=== PATIENT | male | born 1995 | race Caucasian/White ===

== ENCOUNTER 2016-04-24 08:16 | Emergency (ER) | payer OTHER ==
[~2016-04-24] VITALS: Ht 175.3 cm; Wt 85.0 kg
[2016-04-24 08:20] VITALS: BP 117/85; PULSE 82; RESP 18; TEMP 98.3; O2SAT 100
[2016-04-24] MEDS ORDERED: SODIUM CHLOR 0.9% 1000 ML INJ 1,000 ML IV SCH (08:36)
--- NOTE | 2016-04-24 08:44 | PD ---
HPI Chief Complaint: Flank/Kidney Pain Time Seen by Provider: 08:25 Travel History International Travel<30 days: No Contact w/Intl Traveler<30days: No Traveled to known affect area: No History of Present Illness HPI 21-year-old male presents with mom for evaluation of right flank pain. The patient believes he may have a kidney stone, last kidney stone was about 6 months ago. Pain is in his right flank, started this morning, intermittent, sharp, currently 1 out of 10, intermittently worse, no modifying factors, associated with nausea but no vomiting. Last bowel movement was yesterday and was normal. No fevers or chills. He has noted some hematuria. No dysuria. PFSH Past Medical History Asthma: Yes ( A CHILD) Diminished Hearing: No Kidney Stones: Yes Immunizations Current: Yes Tetanus Vaccination: > 5 Years Influenza Vaccination: Yes Past Surgical History Surgical History: No Previous Surgery Social History Alcohol Use: Yes (SOCIAL) Tobacco Use: No Substance Use: No Allergies-Medications (Allergen,Severity, Reaction): Coded Allergies: Augmentin (Verified Allergy, Severe, 04/24/16) Reported Meds & Prescriptions Reported Meds & Active Scripts Active No Active Prescriptions or Reported Medications Review of Systems Except as stated in HPI: all other systems reviewed are Neg Physical Exam Narrative GENERAL: Well-developed, well-nourished, comfortable, no acute distress. SKIN: Warm and dry. No rash. HEAD: Atraumatic. Normocephalic. EYES: Pupils equal and round. No scleral icterus. No injection or drainage. ENT: Mucous membranes pink and moist. CARDIOVASCULAR: Regular rate and rhythm. RESPIRATORY: No accessory muscle use. Clear to auscultation. Breath sounds equal bilaterally. GASTROINTESTINAL: Abdomen soft, non-tender, nondistended. Negative Castillo sign. MUSCULOSKELETAL: No obvious deformities. No clubbing. No cyanosis. No edema. No midline vertebral step-off or tenderness. Mild right CVA tenderness. No left CVA tenderness. NEUROLOGICAL: Awake and alert. No obvious cranial nerve deficits. Motor grossly within normal limits. Normal speech. PSYCHIATRIC: Appropriate mood and affect; insight and judgment normal. Data Data Last Documented VS Vital Signs Date Time Temp Pulse Resp B/P Pulse Ox O2 Delivery O2 Flow Rate FiO2 04/24/16 08:56 100 Room Air 04/24/16 08:20 98.3 82 18 117/85 Orders Urinalysis - C+S If Indicated (04/24/16 08:22) Complete Blood Count With Diff (04/24/16 08:36) Comprehensive Metabolic Panel (04/24/16 08:36) Ct Abd/Pel W/O Iv Contrast (04/24/16 08:36) Iv Access Insert/Monitor (04/24/16 08:36) Ecg Monitoring (04/24/16 08:36) Oximetry (04/24/16 08:36) Ondansetron Inj (Zofran Inj) (04/24/16 08:45) Sodium Chlor 0.9% 1000 Ml Inj (Ns 1000 M (04/24/16 08:36) Sodium Chloride 0.9% Flush (Ns Flush) (04/24/16 08:45) Ketorolac Inj (Toradol Inj) (04/24/16 08:45) Tamsulosin (Flomax) (04/24/16 09:45) Urine Culture (04/24/16 09:45) Labs Laboratory Tests Test 04/24/16 04/24/16 08:45 09:45 White Blood Count 3.9 TH/MM3 Red Blood Count 5.20 MIL/MM3 Hemoglobin 15.7 GM/DL Hematocrit 46.5 % Mean Corpuscular Volume 89.4 FL Mean Corpuscular Hemoglobin 30.1 PG Mean Corpuscular Hemoglobin 33.7 % Concent Red Cell Distribution Width 12.6 % Platelet Count 222 TH/MM3 Mean Platelet Volume 7.0 FL Neutrophils (%) (Auto) 49.2 % Lymphocytes (%) (Auto) 36.5 % Monocytes (%) (Auto) 10.7 % Eosinophils (%) (Auto) 2.7 % Basophils (%) (Auto) 0.9 % Neutrophils # (Auto) 2.0 TH/MM3 Lymphocytes # (Auto) 1.4 TH/MM3 Monocytes # (Auto) 0.4 TH/MM3 Eosinophils # (Auto) 0.1 TH/MM3 Basophils # (Auto) 0.0 TH/MM3 CBC Comment DIFF FINAL Differential Comment Sodium Level 144 MEQ/L Potassium Level 3.6 MEQ/L Chloride Level 108 MEQ/L Carbon Dioxide Level 28.2 MEQ/L Anion Gap 8 MEQ/L Blood Urea Nitrogen 8 MG/DL Creatinine 1.10 MG/DL Estimat Glomerular Filtration 85 ML/MIN Rate Random Glucose 100 MG/DL Calcium Level 8.6 MG/DL Total Bilirubin 1.0 MG/DL Aspartate Amino Transf 13 U/L (AST/SGOT) Alanine Aminotransferase 21 U/L (ALT/SGPT) Alkaline Phosphatase 64 U/L Total Protein 7.3 GM/DL Albumin 4.4 GM/DL Urine Collection Type CLEAN CATCH Urine Color RED Urine Turbidity MOD Urine pH 8.5 Urine Specific [place] 1.017 Urine Protein 100 mg/dL Urine Glucose (UA) NEG mg/dL Urine Ketones NEG mg/dL Urine Occult Blood LARGE Urine Nitrite NEG Urine Bilirubin NEG Urine Leukocyte Esterase NEG Urine RBC INNUM /hpf Urine WBC 20-24 /hpf Urine Squamous Epithelial 0-5 /hpf Cells Microscopic Urinalysis Comment CULTURE INDICATED Urine Collection Time 09:45 MDM Medical Decision Making Medical Screen Exam Complete: Yes Emergency Medical Condition: Yes Medical Record Reviewed: Yes Differential Diagnosis Nephrolithiasis, ureterolithiasis, UTI, pyelonephritis, cholecystitis, cholelithiasis, musculoskeletal pain Narrative Course Vital signs show heart rate 82, blood pressure 117/85, pulse ox 100% on room air , oral temp of 98.3F. CBC is essentially unremarkable. CMP is unremarkable. UA shows red urine, moderate turbidity, 100 protein, large occult blood, innumerable rbc's, 20-24 WBCs negative leukocyte esterase, negative nitrites. I do not believe that this is a UTI. Slightly elevated WBC is likely secondary to inflammatory change. CT abdomen pelvis: CONCLUSION: 1. There is a 6 x 4 mm stone at the right ureteropelvic junction causing mild distention of the right collecting system. 2. There are 2 additional nonobstructing stones within each kidney. These measure up to 4 mm. Patient is resting comfortably. He was given Toradol. He will be given Flomax. At this point he is stable for discharge home with outpatient follow- up with a urologist this week. He'll be discharged home with a perception for Flomax, pain medication, and antiemetics. He was informed on when to return to the emergency department. He verbalizes understanding and agreement with plan. Diagnosis Primary Impression: Ureterolithiasis Referrals: Pedro Munoz MD 3 days urologist Additional Instructions: Follow-up with urologist Dr. Munoz or urologist of your choice this week. Return to the emergency department for worsening symptoms or any other concerns. Scripts Ondansetron Odt (Zofran Odt)4 Mg Tab4 Mg SL Q8HR PRN (Nausea/Vomiting) #15 TAB Ref 0 Prov:Calvin Ma MD 04/24/16 Oxycodone-Acetaminophen (Percocet)5-325 mg Tab1 Tab PO Q6H PRN (PAIN) #15 TAB Ref 0 Prov:Calvin Ma MD 04/24/16 Tamsulosin (Flomax)0.4 Mg Cap0.4 Mg PO HS #14 CAP Ref 0 Prov:Calvin Ma MD 04/24/16 Disposition: 01 DISCHARGE HOME Condition: Stable Calvin Ma MD Apr 24, 2016 08:44
[2016-04-24] MEDS ORDERED: KETOROLAC TROMETHAMINE 30 MG/ML (IVP) VIAL IV PUSH ONE (08:45)
[2016-04-24] MEDS ORDERED: SODIUM CHLORIDE 0.9% FLUSH 5 ML FLUSH IVF PRN (08:45)
[2016-04-24] MEDS ORDERED: ONDANSETRON HCL 4 MG/2 ML VIAL IVP ONE (08:45)
[2016-04-24 08:50] LABS: BASOPHIL % 0.9 % (0.0-2.0); EOSINOPHIL # 0.1 TH/MM3 (0-0.4); EOSINOPHIL % 2.7 % (0.0-4.0); HEMATOCRIT 46.5 % (39.0-51.0); HEMO FLAGS DIFF FINAL; LYMPH % 36.5 % (9.0-44.0); LYMPHOCYTE # 1.4 TH/MM3 (1.0-4.8); MEAN CELL VOLUME 89.4 FL (80.0-100.0); MEAN CORPUSCULAR HEMOGLOBIN 30.1 PG (27.0-34.0); MEAN CORPUSCULAR HGB CONC 33.7 % (32.0-36.0); MONO % 10.7 % (0.0-8.0); NEUT % 49.2 % (16.0-70.0); PLATELET COUNT 222 TH/MM3 (150-450); RED CELL DISTRIBUTION WIDTH 12.6 % (11.6-17.2); WHITE BLOOD COUNT 3.9 TH/MM3 (4.0-11.0)
[2016-04-24 08:56] VITALS: O2SAT 100
[2016-04-24 09:03] LABS: CHLORIDE 108 MEQ/L (98-107); POTASSIUM 3.6 MEQ/L (3.5-5.1); SODIUM (NA) 144 MEQ/L (136-145)
[2016-04-24 09:07] LABS: ANION GAP 8 MEQ/L (5-15); BICARBONATE 28.2 MEQ/L (21.0-32.0); BLOOD UREA NITROGEN 8 MG/DL (7-18)
[2016-04-24 09:10] LABS: ALT (GPT) 21 U/L (12-78); AST (GOT) 13 U/L (15-37); GLOMERULAR FILTRATION RATE 85 ML/MIN (>89)
[2016-04-24 09:13] LABS: ALKALINE PHOSPHATASE 64 U/L (45-117)
--- NOTE | 2016-04-24 09:29 | RADHPO ---
EXAM DATE/TIME: 04/24/2016 09:03 [facility] COMPARISON: No previous studies available for comparison. INDICATIONS : Right flank pain. ORAL CONTRAST: No oral contrast ingested. RADIATION DOSE: 11.87 CTDIvol (mGy) MEDICAL HISTORY : Asthma. SURGICAL HISTORY : None. ENCOUNTER: Initial ACUITY: 1 day PAIN SCALE: 4/10 LOCATION: Right Flank TECHNIQUE: Volumetric scanning of the abdomen and pelvis was performed. Using automated exposure control and ad justment of the mA and/or kV according to patient size, radiation dose was kept as low as reasonably achievable to obtain optimal diagnostic quality images. FINDINGS: LOWER LUNGS: The visualized lower lungs are clear. LIVER: Homogeneous density without lesion. There is no dilation of the biliary tree. No calcified gallston es. SPLEEN: Normal size without lesion. PANCREAS: Within normal limits. KIDNEYS: Normal in size and shape. There is a 6 x 4 mm stone at the right ureteropelvic junction causing mild asymmetric distention of the right collecting system but no significant hydronephrosis is present. Th ere are 2 nonobstructing stones in the right kidney measuring 2 mm and 4 mm. There are also 2 nonobst ructing stones in the left kidney measuring 2 mm and 4 mm. No mass is seen. ADRENAL GLANDS: Within normal limits. VASCULAR: There is no aortic aneurysm. BOWEL/MESENTERY: The stomach, small bowel, and colon demonstrate no acute abnormality. There is no free intraperitone al air or fluid. Appendix is normal. ABDOMINAL WALL: Within normal limits. RETROPERITONEUM: There is no lymphadenopathy. BLADDER: No wall thickening or mass. REPRODUCTIVE: Within normal limits. INGUINAL: There is no lymphadenopathy or hernia. MUSCULOSKELETAL: There is mild levoscoliosis. CONCLUSION: 1. There is a 6 x 4 mm stone at the right ureteropelvic junction causing mild distention of the right collecting system. 2. There are 2 additional nonobstructing stones within each kidney. These measure up to 4 mm. Atul Chowdhury MD on April 24, 2016 at 9:24 Board Certified Radiologist. This report was verified electronically.
[2016-04-24] MEDS ORDERED: TAMSULOSIN HCL 0.4 MG CAP PO ONE (09:45)
[2016-04-24 09:51] LABS: BLOOD, URINE LARGE (NEG); GLUCOSE,URINE NEG (NEG); KETONE, URINE NEG (NEG); NITRITE,URINE NEG (NEG); PH, URINE 8.5 (5.0-8.5)
[2016-04-24 09:57] LABS: METHOD OF COLLECTION CLEAN CATCH
[2016-04-24 09:58] LABS: RBC, URINE INNUM /hpf (0-3); SQUAMOUS EPITHELIAL CELL URINE 0-5 /hpf (0-5); URINE COLOR RED (YELLW/STRAW)
[2016-04-24 09:59] LABS: COMMENT (UR) CULTURE INDICATED; CULTURE IF INDICATED CULTURE INDICATED
[2016-04-24] MEDS ORDERED: ZOFR4TAB3 SL (10:10)
[2016-04-24] MEDS ORDERED: PERC5TAB12 PO (10:10)
[2016-04-24] MEDS ORDERED: TAMS5CAP PO (10:10)
[2016-04-24 10:30] VITALS: BP 128/71
== END 2016-04-24 10:33 | disposition home or self-care (01) ==
LOC: PHED 08:16
DX: N20.2 Calculus of kidney with calculus of ureter (principal); Z87.442 Personal history of urinary calculi
CPT/HCPCS: 74176; 80053; 81001; 85025; 87086; 96361; 96374; 96375; 99284; J1885; J2405; J7030